=== PATIENT | male | born 2000 | race Caucasian/White ===

== ENCOUNTER 2023-12-09 06:19 | Emergency (ER) | payer BC, MEDICAID ==
[~2023-12-09] VITALS: Ht 190.5 cm; Wt 100.0 kg
[2023-12-09 06:27] VITALS: TEMP 98.4
[2023-12-09] MEDS ORDERED: LORazepam 2 MG/ML VIAL ONE (06:50)
[2023-12-09] MEDS: LORazepam 2 MG/ML VIAL IM ONE (06:55)
[2023-12-09 07:51] LABS: BASOPHILS % (AUTO) 0.7 % (0.0-2.0); EOSINOPHILS % (AUTO) 1.2 % (1.0-6.0); HEMATOCRIT 44.8 % (41-53); HEMOGLOBIN 14.9 g/dL (13.5-17.5); LYMPHOCYTES # (AUTO) 1.1 K/uL (1.0-4.8); LYMPHOCYTES % (AUTO) 17.1 % (22.0-44.0); MEAN CORPUSCULAR HEMOGLOBIN 31.4 pg (26.0-34.0); MEAN CORPUSCULAR HGB CONC 33.2 G/dL (31.0-37.0); MEAN CORPUSCULAR VOLUME 95 fL (80-100); MONOCYTES # (AUTO) 0.6 K/uL (0.1-1.0); MONOCYTES % (AUTO) 9.1 % (2.0-9.0); NEUTROPHILS # (AUTO) 4.8 K/uL (1.8-7.7); NEUTROPHILS % (AUTO) 71.9 % (40.0-70.0); PLATELET COUNT (AUTO) 208 K/uL (150-450); RED BLOOD CELL COUNT(AUTO) 4.74 MIL/uL (4.50-5.90); RED CELL DISTRIBUTION WIDTH 12.9 % (11.5-14.5); WHITE BLOOD COUNT (AUTO) 6.6 K/uL (4.5-11.0)
[2023-12-09 07:54] LABS: ANION GAP 8 mmol/L (8-16); CALCIUM, TOTAL 9.8 mg/dL (8.8-10.5); CARBON DIOXIDE 29 mmol/L (22-29); CHLORIDE 105 mmol/L (98-107); CREATININE 0.91 mg/dL (0.60-1.30); GLOMERULAR FILTR. RATE CALC > 60 mL/min (>60); GLUCOSE,RANDOM 88 mg/dL (70-110); POTASSIUM 4.3 mmol/L (3.5-5.1); SODIUM SERUM 142 mmol/L (136-145); UREA NITROGEN, BLOOD 12 mg/dL (7-18)
[2023-12-09 08:02] VITALS: BP 116/70; PULSE 92; RESP 14
[2023-12-09 08:03] LABS: VALPROIC ACID < 3 mcg/mL (50-100)
[2023-12-09] MEDS ORDERED: LACOSAMIDE 100 MG TABLET PO ONE (08:15)
[2023-12-09] MEDS: LACOSAMIDE 50 MG TABLET PO ONE (08:31)
[2023-12-09] MEDS ORDERED: CENO200T PO (09:14)
[2023-12-09] MEDS ORDERED: LACO150T4 PO (09:14)
== END 2023-12-09 10:12 | disposition home or self-care (01) ==
LOC: EMS 06:20
DX: G40.909 Epilepsy, unspecified, not intractable, without status epilepticus (principal)
CPT/HCPCS: 99283; 80048; 80164; 85025; 36415; 96372; J2060; Q9967